=== PATIENT | female | born 2000 | race Hispanic/Latino ===

== ENCOUNTER 2018-04-19 07:30 | Outpatient (RCR) | payer OTHER, MEDICAID, SELFPAY ==
--- NOTE | 2018-03-18 17:53 | PT.OTN ---
Current Diagnoses Unspecified dislocation of left acromioclavicular joint, initial encounter (03/30/18) Transition note: On March 15, 2018 our therapy services consisting of Speech, Occupational, and Physical Therapy transitioned from the [employer] electronic documentation system to a new [employer] electronic documentation system.?? All documentation prior to March 15 can be found under [employer] saved data. From March 15 forward all medical record documentation will be in [employer] 6.1.
--- NOTE | 2018-04-06 10:40 | PT.OTN ---
Current Diagnoses Unspecified dislocation of left acromioclavicular joint, initial encounter (04/06/18) Physical Therapy Treatment Note PT-OP-A Visit Information Start: 03/18/18 08:13 Freq: Status: Active Protocol: Document 04/06/18 07:30 AMB (Rec: 04/06/18 07:33 AMB [id number]) Out-Patient Physical Therapy Visit Information Visit Information Visit Type Treatment Note Visit Start Time 07:30 Visit Stop Time 08:15 Total Visit Minutes 45 Visit Number 2 PT-OP-C Subjective Start: 03/18/18 08:13 Freq: Status: Active Protocol: Document 04/06/18 07:30 AMB (Rec: 04/06/18 07:38 AMB [id number]) OP-PT Subjective Patient Comments Patient Comments Pt states things are improving , but overhead lifting and pulling things up remains painful. PT-OP-Q Treatments Start: 03/18/18 08:13 Freq: Status: Active Protocol: Document 04/06/18 07:30 AMB (Rec: 04/06/18 08:12 AMB [id number]) Cardio Equipment Upper Body Ergometer (UBE) Duration (Minutes) 3 RPM 60 Therapeutic Exercises Supine Exercises 2 Supine Exercise Name shoulder flexion Side left 1 Supine Exercise Name scapular punch Reps/Minutes 2 Sitting Exercises 2 Sitting Exercise Name bicep curls Side left Resistance 3# Reps/Minutes x [address] 1 Sitting Exercise Name ricardo- flexion Reps/Minutes 3 min Standing Exercises 3 Standing Exercise Name ER t band Side left Resistance #1 2 Standing Exercise Name rows t band Resistance #2 1 Standing Exercise Name extension t band Resistance #2 Manual Therapy Treatment Soft Tissue Mobilization 1 Body Location UT/ levator scap L Mobilization Type Myofascial Release Sustained Pressure Intensity/Depth Moderate Body Position Supine Manual Techniques 1 Type Passive shoulder flexion/ abduction/ ER/IR Body Location L shoulder Body Position Supine PT-OP-T Assessment and Plan Start: 03/18/18 08:13 Freq: Status: Active Protocol: Document 04/06/18 07:30 AMB (Rec: 04/06/18 10:37 AMB [email or web address]) Physical Therapy Assessment Assessment Summary Assessment The patient attends her first appointment after eval due to scheduling issues. She is able to tolerate more strengthening today, but continues to have soreness at the AC joint with most of the exercises. Physical Therapy Plan Next Visit Focus/Plan Next Visit Plan Progress resistance of shoulder height exercises. Please Sign and Return: I have reviewed this Plan of Care and certify that the skilled therapy services above are required to meet the patient???s needs. Physician Signature Date Printed Name and Credentials Clinical Instructor Signature Printed Name and Credentials
--- NOTE | 2018-04-08 08:27 | PT.OTN ---
Current Diagnoses Unspecified dislocation of left acromioclavicular joint, initial encounter (04/08/18) Physical Therapy Treatment Note PT-OP-A Visit Information Start: 03/18/18 08:13 Freq: Status: Active Protocol: Document 04/08/18 07:30 AMB (Rec: 04/08/18 07:38 AMB [id number]) Out-Patient Physical Therapy Visit Information Visit Information Visit Type Treatment Note Visit Start Time 07:30 Visit Stop Time 08:15 Total Visit Minutes 45 Visit Number 3 PT-OP-C Subjective Start: 03/18/18 08:13 Freq: Status: Active Protocol: Document 04/08/18 07:30 AMB (Rec: 04/08/18 08:25 AMB [email or web address]) OP-PT Subjective Patient Comments Patient Comments Pt states she was a bit sore in the evening after her PT, but overall is feeling fine. She has been doing her band exercises. PT-OP-Q Treatments Start: 03/18/18 08:13 Freq: Status: Active Protocol: Document 04/08/18 07:30 AMB (Rec: 04/08/18 08:25 AMB [email or web address]) Cardio Equipment Upper Body Ergometer (UBE) Duration (Minutes) 5 RPM 60 Therapeutic Exercises Supine Exercises 2 Supine Exercise Name shoulder flexion Side left 1 Supine Exercise Name scapular punch Reps/Minutes 5 Standing Exercises 4 Standing Exercise Name IR t band Side left Resistance #1 3 Standing Exercise Name ER t band Side left Resistance #1 2 Standing Exercise Name rows t band Resistance #2 1 Standing Exercise Name extension t band Resistance #2 Manual Therapy Treatment Taping 1 Body Location L shoulder Comments 3 strips. 2 I strips to support AC joint and inhibit UT. 1 Y strip to support GH joint. Manual Techniques 1 Type Passive shoulder flexion/ abduction/ ER/IR Body Location L shoulder Body Position Supine PT-OP-T Assessment and Plan Start: 03/18/18 08:13 Freq: Status: Active Protocol: Document 04/08/18 07:30 AMB (Rec: 04/08/18 08:25 AMB [email or web address]) Physical Therapy Assessment Assessment Summary Assessment Pt is progressing well, continue to progress resistance exercise. Support pt to avoid UT substitution. Physical Therapy Plan Frequency and Duration Plan of Care Start Date 03/10/18 Plan of Care End Date 05/09/18 Next Visit Focus/Plan Next Note Type Treatment Note Next Visit Plan 1x/week to give pt time to practice HEP between session. Please Sign and Return: I have reviewed this Plan of Care and certify that the skilled therapy services above are required to meet the patient???s needs. Physician Signature Date Printed Name and Credentials Clinical Instructor Signature Printed Name and Credentials
--- NOTE | 2018-04-19 08:22 | PT.OTN ---
Current Diagnoses Unspecified dislocation of left acromioclavicular joint, initial encounter (04/19/18) Physical Therapy Treatment Note PT-OP-A Visit Information Start: 03/18/18 08:13 Freq: Status: Active Protocol: Document 04/19/18 07:30 AMB (Rec: 04/19/18 07:35 AMB [id number]) Out-Patient Physical Therapy Visit Information Visit Information Visit Type Treatment Note Visit Start Time 07:30 Visit Stop Time 08:15 Total Visit Minutes 45 Visit Number 4 Evaluation Information Evaluation Date 03/10/18 PT-OP-C Subjective Start: 03/18/18 08:13 Freq: Status: Active Protocol: Document 04/19/18 07:30 AMB (Rec: 04/19/18 07:36 AMB [id number]) OP-PT Subjective Patient Comments Patient Comments Pt reports she wakes up with a sore shoulder when she sleeps on it. PT-OP-Q Treatments Start: 03/18/18 08:13 Freq: Status: Active Protocol: Document 04/19/18 07:30 AMB (Rec: 04/19/18 08:21 AMB [email or web address]) Cardio Equipment Upper Body Ergometer (UBE) Duration (Minutes) 4 RPM 60 Therapeutic Exercises Supine Exercises 3 Supine Exercise Name alternating isometrics Comments 90 degrees of flexion Sitting Exercises 3 Sitting Exercise Name shoulder flexion Resistance 3# Reps/Minutes 2x5 2 Sitting Exercise Name bicep curls Side left Resistance 3# Reps/Minutes x [address] Standing Exercises 4 Standing Exercise Name IR t band Side left Resistance #1 Reps/Minutes 2x10 3 Standing Exercise Name ER t band Side left Resistance #1 Reps/Minutes 1x10 2 Standing Exercise Name rows t band Resistance #2 Reps/Minutes 2x10 Manual Therapy Treatment Soft Tissue Mobilization 2 Body Location biceps tendon Mobilization Type Cross-Friction Intensity/Depth Moderate Body Position Supine 1 Body Location UT/ levator scap L Mobilization Type Myofascial Release Sustained Pressure Intensity/Depth Moderate Body Position Supine PT-OP-T Assessment and Plan Start: 03/18/18 08:13 Freq: Status: Active Protocol: Document 04/19/18 07:30 AMB (Rec: 04/19/18 08:21 AMB [email or web address]) Physical Therapy Assessment Assessment Summary Assessment not using UT to substitute as much, but more painful at anterior shoulder due to sleep positioning. Physical Therapy Plan Frequency and Duration Plan of Care Start Date 03/10/18 Plan of Care End Date 05/09/18 Next Visit Focus/Plan Next Note Type Treatment Note Next Visit Plan Progress shoulder stabilization at shoulder height and higher. Please Sign and Return: I have reviewed this Plan of Care and certify that the skilled therapy services above are required to meet the patient?s needs. Physician Signature Date Printed Name and Credentials Clinical Instructor Signature Printed Name and Credentials
--- NOTE | 2018-05-03 07:46 | PT.OPDS ---
Current Diagnoses Unspecified dislocation of left acromioclavicular joint, initial encounter (04/19/18) Provider Visit Care Team Role Provider Type XANDER Garcia Attending Provider Advanced Practitioner Clinician Family Provider Primary Care Provider Specialty: [facility] Practice Address: [address] [place] [address], [id number] Email: [email or web address] Discharge Summary The patient was seen for 4 visits. PT-OP-C Subjective Start: 03/18/18 08:13 Freq: Status: Active Protocol: Document 04/19/18 07:30 AMB (Rec: 04/19/18 07:36 AMB [id number]) OP-PT Subjective Patient Comments Patient Comments Pt reports she wakes up with a sore shoulder when she sleeps on it. 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 MET STG Duration 4 weeks Senior Living Goal (LTG) The patient will lift and carry 20# at waist height without an increase in baseline pain. MET, above shoulder height remains difficult. LTG Duration 8 weeks 1 Impairment Sleep Short Term Goal (STG) The patient will sleep through the night without waking due to shoulder pain. NOT MET STG Duration 4 weeks Assessment Summary Assessment At the patient's last visit, she was having shoulder pain while sleeping, but otherwise was improving with her strength. Physical Therapy Plan Discharge Physical Therapy Discharge Reasons Patient Request Discharge Comments The patient called in to state she feels fine and doesn't think she needs further physical therapy.
== END 2018-05-04 14:36 ==
LOC: PHYS 07:30
PROVIDERS: Family Provider Internal Medicine; PCP Internal Medicine; Visit Provider Internal Medicine
DX: S43.102A Unspecified dislocation of left acromioclavicular joint, initial encounter (principal)
CPT/HCPCS: 97110; 97140

== ENCOUNTER → 2018-05-01 15:31 | Outpatient (CLI) | payer OTHER, MEDICAID, SELFPAY | PROVIDERS: Family Provider Internal Medicine; PCP Internal Medicine; Visit Provider Physician Assistant | DX: R30.0 Dysuria (principal) | CPT/HCPCS: 87077; 87086; 87186 ==

== ENCOUNTER 2018-05-28 22:53 | Emergency (ER) | payer OTHER, SELFPAY ==
[2018-05-28 23:11] VITALS: BP 156/91; PULSE 74; RESP 16; TEMP 37; O2SAT 99; BMI 29.2
--- NOTE | 2018-05-28 23:24 | PC.NURSE ---
contusion to right bicep area. redness and bruising over entire bicep area
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
--- NOTE | 2018-05-28 23:36 | DI.CT.S_ITS ---
PROCEDURE: CT CERVICAL SPINE WO CON INDICATIONS: midline neck pain C7/T1 TECHNIQUE: Noncontrast 3 mm thick sections acquired from the skull base to the T4 level. Sagittal and coronal reformats were then constructed. For radiation dose reduction, the following was used: automated exposure control, adjustment of mA and/or kV according to patient size. COMPARISON: None. FINDINGS: Image quality: Excellent. Bones: No fractures or dislocations. There is reverse lordosis. Visualized superior ribs are intact. Soft tissues: Prevertebral soft tissues are normal in thickness. No paravertebral hematomas. No apical pneumothoraces. IMPRESSION: 1. No fracture or dislocation. 2. Reverse lordosis of the cervical curvature, which may be secondary to positioning or muscle spasm. No significant discrepancy with the night nurse radiology preliminary report. Dictated by: Elaine Corey M.D. on 05/29/2018 at 7:20 Approved by: Elaine Corey M.D. on 05/29/2018 at 7:22
[2018-05-29 00:53] VITALS: BP 155/88; PULSE 82; RESP 16; O2SAT 97
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
== END 2018-05-29 01:15 | disposition home or self-care (01) ==
PROVIDERS: Emergency Provider Emergency Medicine; Family Provider Internal Medicine; PCP Internal Medicine
DX: S00.33XA Contusion of nose, initial encounter (principal); V86.99XA Unspecified occupant of other special all-terrain or other off-road motor vehicle injured in nontraffic accident, initial encounter
CPT/HCPCS: 70450; 70486; 72125; 81025; 99283; 99284; 99291

== ENCOUNTER → 2018-10-12 16:05 | Outpatient (CLI) | payer OTHER, SELFPAY ==
--- NOTE | 2018-10-12 16:10 | DI.RAD.S_ITS ---
PROCEDURE: XR SHOULDER RT MIN 2V INDICATIONS: r shoulder pain TECHNIQUE: 3 views of the shoulder were acquired. COMPARISON: [facility], , SHOULDER MINIMUM 2 VIEW LEFT, 02/10/2018, 13:51. FINDINGS: Bones: No fractures or dislocations. No suspicious bony lesions. Visualized ribs appear intact. Soft tissues: No suspicious soft tissue calcifications. IMPRESSION: Negative examination as above Dictated by: Donaldo Cornejo M.D. on 10/12/2018 at 16:35 Approved by: Donaldo Cornejo M.D. on 10/12/2018 at 16:36
== END ==
PROVIDERS: Family Provider Internal Medicine; PCP Internal Medicine; Visit Provider Physician Assistant
DX: M25.511 Pain in right shoulder (principal)
CPT/HCPCS: 73030

== ENCOUNTER 2019-02-21 02:35 | Emergency (ER) | payer SELFPAY ==
[2019-02-21 02:43] VITALS: BP 131/77; PULSE 99; RESP 15; TEMP 36.9; O2SAT 100; BMI 30.7
--- NOTE | 2019-02-21 02:49 | DI.RAD.S_ITS ---
PROCEDURE: XR ANKLE LT MIN 3V INDICATIONS: pain to left ankle TECHNIQUE: 3 views of the ankle were acquired. COMPARISON: None. FINDINGS: Bones: No fractures or dislocations. Ankle mortise is normally aligned. No suspicious bony lesions. Soft tissues: No tibiotalar joint effusion. Achilles tendon appears normal. IMPRESSION: No trauma, source of pain is not seen. Dictated by: Neal Pathak M.D. on 02/21/2019 at 8:36 Approved by: Neal Pathak M.D. on 02/21/2019 at 8:37
[2019-02-21 03:48] VITALS: BP 121/71; PULSE 91; RESP 14; O2SAT 100
--- NOTE | 2019-02-21 05:25 | ED_ITS ---
HPI - Extremity Injury (Lower) General Chief Complaint: Extremity Injury, Lower Stated Complaint: lef ankle/foot injury in [place]/rash both arms Time Seen by Provider: 02/21/19 03:00 Source: patient Mode of arrival: ambulatory Limitations: no limitations History of Present Illness HPI Narrative: 18-year-old female nonsmoker minimal medical history presents for evaluation of left ankle pain for past 4 days. She was in [place] an outside a bar when she thinks she twisted it but does not really remember. She states that her ankle as head increasing discomfort though she has been walking for the past 4 days. Is okay when she is at rest. She has tried taking Motrin. Additionally she has a mild rash on her forearms which has happened in the past when traveling abroad and tends to be better with steroids. She denies any fever chills nor nausea or vomiting. She denies numbness, tingling or weakness. She is not dizzy or weak or lightheaded. MD complaint: ankle injury Type of Injury: inversion Relieving factors: immobilization Exacerbating factors: weight bearing and movement Context: direct blow Associated symptoms: snap/pop sensation Other symptoms: none Related Data Previous Rx's Medication Instructions Recorded triamcinolone acetonide 0.5 % 1 applictn TOP BID #15 gram 10/17/18 topical cream prednisone 20 mg PO DAILY #5 tab 02/21/19 Allergies Allergy/AdvReac Type Severity Reaction Status Date / Time No Known Drug Allergies Allergy Verified 10/12/18 15:45 Review of Systems Constitutional Denies chills, Denies fever(s), Denies lethargy and Denies weakness Eyes Denies change in vision, Denies eye discharge, Denies irritation and Denies loss of vision ENT Ears, Nose, Mouth, and Throat: Denies change in voice, Denies neck pain and D enies sore throat Cardiovascular Denies chest pain, Denies irregular heart rhythm, Denies lightheadedness, Denies palpitations, Denies dyspnea, Denies dyspnea on exertion and Denies orthopnea Respiratory Denies cough, Denies dyspnea, Denies dyspnea on exertion and Denies wheezing Gastrointestinal Gastrointestinal: Denies abdominal pain, Denies change in bowel habits, Denies diarrhea, Denies nausea and Denies vomiting Genitourinary Denies hematuria, Denies flank pain, Denies urinary incontinence and Denies urinary urgency Musculoskeletal Reports joint swelling, Reports limited range of motion and Denies neck pain Integumentary/Breasts Reports pruritus, Denies erythema, Reports rash and Denies wounds Neurologic Denies confusion, Denies loss of vision and Denies weakness Psychiatric Denies anxiety, Denies confusion, Denies depression, Denies homicidal ideation and Denies suicidal ideation Endocrine Denies palpitations Hematologic/Lymphatic Denies easy bruising Allergic/Immunologic Denies wheezing PFSH Social History Smoking Status: Never smoker Social History Smoking Status: Never smoker Exam Narrative Exam Narrative: GEN: AOx3 and in mild distress EYES: Pupils are equal, round, and reactive to light and accommodation. Extraoccular muscles are intact bilaterally. There is no subconjunctival hemorrhage or exudate. CHEST: Lungs are clear to auscultation bilaterally and free of wheezes, rales, or rhonchi. Heart rate is regular rhythm, there are no murmurs, clicks, rubs, or gallops. There is no chest wall tenderness. ABD: Abdomen is soft and nontender. There is no guarding or rebound. Bowel sounds are normal in all 4 quadrants. There is no mass or organomegaly. EXT: Full but painful range of motion at the left ankle. There is some swelling lateral and inferior to the lateral malleolus. This is closed, isolated and neuro intact. There is no obvious external deformity. SKIN: Warm, pink, and dry. moderately pruritic, dry rash the flexor surface bilateral upper extremities Initial Vital Signs Initial Vital Signs: Vital Signs Temperature 98.4 F 02/21/19 02:43 Pulse Rate 99 H 02/21/19 02:43 Respiratory Rate 15 02/21/19 02:43 Blood Pressure 131/77 02/21/19 02:43 Pulse Oximetry 100 02/21/19 02:43 Procedures Orthopedic Splinting/Casting Injury #1: Side: left Lower Extremity Injury Location: ankle Lower Extremity Immobilizer: Chase wrap Post splinting neuro exam: intact Post splinting vascular exam: intact Placed by: Nursing Course Orders Ordered: ED Orders 02/21/19 02:49 XR ankle LT min 3V Stat Vital Signs - 8 hr 02/21/19 02:43 02/21/19 03:48 Temperature 98.4 F Pulse Rate 99 H 91 H Respiratory Rate 15 14 Blood Pressure 131/77 121/71 Pulse Oximetry 100 100 MDM - Extremity Injury (Lower) Imaging Data Ankle Xray: Attestation: I personally reviewed and interpreted this imaging study as follows: My impression: No fracture Discharge Plan Departure Patient Disposition: Home Clinical Impression: Rash and nonspecific skin eruption, Ankle sprain and strain Discharge Date/Time: 02/21/19 03:49 Interventions: ED Discharge Assessment Last Done: 02/21/19 03:48 Instructions: DI for Ankle Sprain Activity Restrictions/Additional Instructions: *You have been diagnosed with [ ankle sprain and nonspecific rash ] *What to do: *Take medications as directed *Follow up with your primary care provider in 2-3 days, call for an appointment. Let them know you were seen in the Emergency Department and that we ask that you be seen in follow up *Return to ER if you should have any new, worsening or concerning symptoms Prescriptions: New prednisone 20 mg tablet 20 mg PO DAILY Qty: 5 RF: 0 No Action triamcinolone acetonide 0.5 % cream 1 applictn TOP BID Qty: 15 RF: 2 Referrals: Amarilis Swain ARNP [Primary Care Provider] -
== END 2019-02-21 03:49 | disposition home or self-care (01) ==
PROVIDERS: Emergency Provider Emergency Medicine; Family Provider Internal Medicine; PCP Internal Medicine
DX: S93.402A Sprain of unspecified ligament of left ankle, initial encounter (principal); R21 Rash and other nonspecific skin eruption
CPT/HCPCS: 73610; 99282; 99283